=== PATIENT | male | born 2000 | race Two or more races ===

== ENCOUNTER 2021-10-08 21:56 | Emergency (ER) | payer OTHER ==
[~2021-10-08] VITALS: Ht 190.5 cm; Wt 68.0 kg
[2021-10-09] MEDS ORDERED: MUCINEX DM ER1 EACH PO (01:07)
[2021-10-09] MEDS ORDERED: CETIRIZINE HCL5 MG PO (01:07)
[2021-10-09] MEDS ORDERED: VITAMIN C WIT1000 MG PO (01:07)
[2021-10-09] MEDS ORDERED: AZITHROMYCIN500 MG PO (01:07)
[2021-10-09] MEDS ORDERED: ACETAMINOPHEN650 M2 PO (01:07)
== END 2021-10-09 02:57 | disposition home or self-care (01) ==
LOC: ER 21:56 → EMR PED 21:56
DX: J02.9 Acute pharyngitis, unspecified (principal); H66.93 Otitis media, unspecified, bilateral; Z20.822 Contact with and (suspected) exposure to COVID-19

== ENCOUNTER 2025-02-13 16:47 | Emergency (ER) | payer OTHER ==
[~2025-02-13] VITALS: Ht 190.5 cm; Wt 76.2 kg
[~2025-02-13 16:47] MED LIST: ACETAMINOPHEN650 M2 PO; AZITHROMYCIN500 MG PO; CETIRIZINE HCL5 MG PO; MUCINEX DM ER1 EACH PO; VITAMIN C WIT1000 MG PO
[2025-02-13] MEDS ORDERED: CEFTRIAXONE SODIUM 1,000 MG VIAL IM ONE (17:30)
[2025-02-13] MEDS ORDERED: KETOROLAC TROMETHAMINE 30 MG VIAL IM ONE (17:30)
[2025-02-13] MEDS ORDERED: CETIRIZINE HCL 5 MG/5 ML ML PO ONE (17:30)
[2025-02-13] MEDS ORDERED: CONEX TABLET1 EACH PO (17:38)
[2025-02-13] MEDS ORDERED: AMOX-CLAV 875-1 EAC1 PO (17:38)
[2025-02-13] MEDS ORDERED: ZYRTEC10 MG PO (17:38)
== END 2025-02-13 18:14 | disposition home or self-care (01) ==
LOC: ER 16:57
DX: H66.91 Otitis media, unspecified, right ear (principal); R09.81 Nasal congestion